=== PATIENT | male | born 1930 | race Caucasian/White ===

== ENCOUNTER 2018-02-06 10:48 | Inpatient (IN) | payer OTHER, MEDICAID ==
[~2018-02-06] VITALS: Ht 165.1 cm; Wt 69.9 kg
[2018-02-06 16:22] VITALS: BP_SYST 96
[2018-02-06] MEDS ORDERED: STA120 PO (16:57)
[2018-02-06] MEDS ORDERED: MELO15TA13 PO (16:57)
[2018-02-06] MEDS ORDERED: METF-509 PO (16:57)
[2018-02-06] MEDS ORDERED: RISP0.5T2 PO (16:57)
[2018-02-06] MEDS ORDERED: PRAM1TAB4 PO (16:57)
[2018-02-06] MEDS ORDERED: MEMA10SO PO (16:57)
[2018-02-06] MEDS ORDERED: VITD2000 PO (16:57)
[2018-02-06] MEDS ORDERED: BUSP5TAB3 PO (16:57)
[2018-02-06] MEDS ORDERED: SERT50TA12 PO (16:57)
[2018-02-06] MEDS ORDERED: GABA-529 PO (16:57)
[2018-02-06] MEDS ORDERED: LEVO100T9 PO (16:57)
[2018-02-06] MEDS ORDERED: NORT10CA PO (16:57)
[2018-02-06] MEDS ORDERED: IBUP-1480 PO (16:57)
[2018-02-06] MEDS ORDERED: ENAL10TA PO (16:57)
[2018-02-06] MEDS ORDERED: TAMS-11 PO (16:57)
[2018-02-06] MEDS ORDERED: ASA81 PO (16:57)
[2018-02-06] MEDS ORDERED: ROSU10TA PO (16:57)
[2018-02-06] MEDS ORDERED: MONT10TA22 (16:57)
[2018-02-06] MEDS ORDERED: FERR-57 PO (16:57)
[2018-02-06] MEDS ORDERED: MILK OF MAGNESIA 30 ML UDC PO PRN (18:30)
[2018-02-06] MEDS ORDERED: IBUPROFEN 800 MG TABLET PO SCH (18:30)
[2018-02-06] MEDS ORDERED: IBUPROFEN 800 MG TABLET PO PRN (20:24)
[2018-02-06 20:50] VITALS: BP_SYST 127
[2018-02-06] MEDS: 0.45% NACL 1,000 ML IV SCH (21:42)
[2018-02-06] MEDS: CHOLECALCIFEROL (VITAMIN D3) 2,000 UNIT TABLET PO SCH (21:43)
[2018-02-06] MEDS: SIMVASTATIN 40 MG TABLET PO SCH (21:43)
[2018-02-06] MEDS: ENOXAPARIN SODIUM 30 MG/0.3 ML SYRINGE SUBCUT SCH (21:43)
[2018-02-06] MEDS: FERROUS SULFATE 325 MG TABLET.DR PO SCH (21:43)
[2018-02-06] MEDS: MELOXICAM 7.5 MG TABLET PO SCH (21:43)
[2018-02-06] MEDS: NATEGLINIDE 120 MG TABLET PO SCH (21:43)
[2018-02-06] MEDS: GABAPENTIN 100 MG CAPSULE PO SCH (21:43)
[2018-02-06] MEDS: NORTRIPTYLINE HCL 10 MG CAPSULE PO SCH (21:43)
[2018-02-06] MEDS: PRAMIPEXOLE DI-HCL 1 MG TABLET PO SCH (21:44)
[2018-02-06] MEDS: busPIRone HCL 5 MG TABLET PO SCH (21:44)
[2018-02-06] MEDS: INSULIN REGULAR, HUMAN 100 UNITS/ML, 10 ML VIAL (novoLIN R) SUBCUT PRN (22:15)
[2018-02-07 00:47] VITALS: BP_SYST 114
[2018-02-07] MEDS: LEVOTHYROXINE SODIUM 0.1 MG TABLET PO SCH (06:26)
[2018-02-07] MEDS: INSULIN REGULAR, HUMAN 100 UNITS/ML, 10 ML VIAL (novoLIN R) SUBCUT PRN ×3 (06:29→17:20)
[2018-02-07 06:58] LABS: BASOPHILS # (AUTO) 0.1 K/uL (0.0-0.2); BASOPHILS % (AUTO) 0.8 % (0.0-2.0); EOSINOPHILS # (AUTO) 0.4 K/uL (0.0-0.4); EOSINOPHILS % (AUTO) 3.7 % (0.0-4.0); HEMATOCRIT 36.4 % (36-54); HEMOGLOBIN 12.4 g/dL (14.0-18.0); LYMPHOCYTES # (AUTO) 3.4 K/uL (1.0-5.5); LYMPHOCYTES % (AUTO) 35.6 % (20.5-51.5); MEAN CORPUSCULAR HEMOGLOBIN 32 pg (27-31); MEAN CORPUSCULAR HGB CONC 34 % (32-36); MEAN CORPUSCULAR VOLUME 94 fL (79.0-98.0); MONOCYTES # (AUTO) 0.9 K/uL (0.0-1.0); MONOCYTES % (AUTO) 9.8 % (1.7-9.3); NEUTROPHILS # (AUTO) 4.7 K/uL (1.8-7.7); NEUTROPHILS % (AUTO) 50.1 % (40.0-70.0); PLATELET COUNT (AUTO) 214 K/uL (130-430); RED BLOOD CELL COUNT(AUTO) 3.87 MIL/uL (4.2-6.2); RED CELL DISTRIBUTION WIDTH 12.1 % (9.0-15.0); WHITE BLOOD COUNT (AUTO) 9.5 K/uL (4.8-10.8)
[2018-02-07 07:12] LABS: ANION GAP 9 (5-15); CHLORIDE 102 mmol/L (98-107); CREATININE 1.27 mg/dL (0.55-1.30); GLUCOSE 173 mg/dL (70-99); SODIUM SERUM 137 mmol/L (136-145); UREA NITROGEN, BLOOD 29 mg/dL (8-21)
[2018-02-07 07:31] LABS: THYROID STIMULATING HORMONE 2.99 uIu/mL (0.36-3.74)
[2018-02-07] MEDS: MONTELUKAST 10 MG TABLET PO SCH (08:28)
[2018-02-07] MEDS: CHOLECALCIFEROL (VITAMIN D3) 2,000 UNIT TABLET PO SCH ×2 (08:28→20:17)
[2018-02-07] MEDS: SERTRALINE HCL 50 MG TABLET PO SCH (08:28)
[2018-02-07] MEDS: ASPIRIN 81 MG TAB.CHEW PO SCH (08:28)
[2018-02-07] MEDS: MELOXICAM 7.5 MG TABLET PO SCH ×2 (08:28→20:18)
[2018-02-07] MEDS: FERROUS SULFATE 325 MG TABLET.DR PO SCH ×2 (08:28→20:18)
[2018-02-07] MEDS: TAMSULOSIN HCL 0.4 MG CAP PO SCH (08:29)
[2018-02-07] MEDS: NATEGLINIDE 120 MG TABLET PO SCH ×3 (08:29→20:17)
[2018-02-07] MEDS: ENALAPRIL MALEATE 10 MG TABLET (VASOTEC) PO SCH (08:29)
[2018-02-07] MEDS: GABAPENTIN 100 MG CAPSULE PO SCH ×2 (08:29→20:18)
[2018-02-07] MEDS: 0.45% NACL 1,000 ML IV SCH ×2 (08:30→21:25)
[2018-02-07 08:50] VITALS: BP_SYST 121
[2018-02-07] MEDS ORDERED: MILK OF MAGNESIA 30 ML UDC PO PRN (09:45)
[2018-02-07] MEDS ORDERED: MEMANTINE HCL 5 MG TABLET PO ONE (09:45)
[2018-02-07] MEDS: busPIRone HCL 5 MG TABLET PO SCH ×2 (11:28→21:58)
[2018-02-07 12:00] VITALS: BP_SYST 129
[2018-02-07 16:55] VITALS: BP_SYST 134
[2018-02-07 20:00] VITALS: BP_SYST 136
[2018-02-07] MEDS: MEMANTINE HCL 5 MG TABLET PO SCH (20:17)
[2018-02-07] MEDS: NORTRIPTYLINE HCL 10 MG CAPSULE PO SCH (20:17)
[2018-02-07] MEDS: SIMVASTATIN 40 MG TABLET PO SCH (20:18)
[2018-02-07] MEDS: ENOXAPARIN SODIUM 30 MG/0.3 ML SYRINGE SUBCUT SCH (20:20)
[2018-02-07] MEDS: PRAMIPEXOLE DI-HCL 1 MG TABLET PO SCH (20:43)
[2018-02-08 00:48] VITALS: BP_SYST 122
[2018-02-08] MEDS: LEVOTHYROXINE SODIUM 0.1 MG TABLET PO SCH (06:22)
[2018-02-08] MEDS: INSULIN REGULAR, HUMAN 100 UNITS/ML, 10 ML VIAL (novoLIN R) SUBCUT PRN ×3 (06:28→16:54)
[2018-02-08 07:50] VITALS: BP_SYST 131
[2018-02-08] MEDS: 0.45% NACL 1,000 ML IV SCH ×2 (08:01→21:35)
[2018-02-08] MEDS: ASPIRIN 81 MG TAB.CHEW PO SCH (09:01)
[2018-02-08] MEDS: FERROUS SULFATE 325 MG TABLET.DR PO SCH ×2 (09:01→21:34)
[2018-02-08] MEDS: NATEGLINIDE 120 MG TABLET PO SCH ×3 (09:01→21:34)
[2018-02-08] MEDS: TAMSULOSIN HCL 0.4 MG CAP PO SCH (09:01)
[2018-02-08] MEDS: MONTELUKAST 10 MG TABLET PO SCH (09:01)
[2018-02-08] MEDS: MELOXICAM 7.5 MG TABLET PO SCH ×2 (09:02→21:34)
[2018-02-08] MEDS: CHOLECALCIFEROL (VITAMIN D3) 2,000 UNIT TABLET PO SCH ×2 (09:02→21:35)
[2018-02-08] MEDS: GABAPENTIN 100 MG CAPSULE PO SCH ×2 (09:02→21:35)
[2018-02-08] MEDS: MEMANTINE HCL 5 MG TABLET PO SCH ×2 (09:02→21:34)
[2018-02-08] MEDS: SERTRALINE HCL 50 MG TABLET PO SCH (09:02)
[2018-02-08] MEDS: ENALAPRIL MALEATE 10 MG TABLET (VASOTEC) PO SCH (09:03)
[2018-02-08] MEDS: busPIRone HCL 5 MG TABLET PO SCH ×2 (09:05→21:34)
[2018-02-08 12:00] VITALS: BP_SYST 132
[2018-02-08 15:57] VITALS: BP_SYST 120
[2018-02-08 19:10] VITALS: BP_SYST 145
[2018-02-08] MEDS: PRAMIPEXOLE DI-HCL 1 MG TABLET PO SCH (21:34)
[2018-02-08] MEDS: SIMVASTATIN 40 MG TABLET PO SCH (21:34)
[2018-02-08] MEDS: NORTRIPTYLINE HCL 10 MG CAPSULE PO SCH (21:34)
[2018-02-08] MEDS: ENOXAPARIN SODIUM 30 MG/0.3 ML SYRINGE SUBCUT SCH (21:35)
[2018-02-09 00:28] VITALS: BP_SYST 121
[2018-02-09] MEDS: LEVOTHYROXINE SODIUM 0.1 MG TABLET PO SCH (06:15)
[2018-02-09] MEDS: INSULIN REGULAR, HUMAN 100 UNITS/ML, 10 ML VIAL (novoLIN R) SUBCUT PRN ×2 (06:21→10:54)
[2018-02-09] MEDS: SERTRALINE HCL 50 MG TABLET PO SCH (08:23)
[2018-02-09] MEDS: TAMSULOSIN HCL 0.4 MG CAP PO SCH (08:23)
[2018-02-09] MEDS: MEMANTINE HCL 5 MG TABLET PO SCH (08:23)
[2018-02-09] MEDS: MONTELUKAST 10 MG TABLET PO SCH (08:23)
[2018-02-09] MEDS: ENALAPRIL MALEATE 10 MG TABLET (VASOTEC) PO SCH (08:23)
[2018-02-09] MEDS: GABAPENTIN 100 MG CAPSULE PO SCH (08:23)
[2018-02-09] MEDS: ASPIRIN 81 MG TAB.CHEW PO SCH (08:23)
[2018-02-09] MEDS: NATEGLINIDE 120 MG TABLET PO SCH (08:23)
[2018-02-09] MEDS: CHOLECALCIFEROL (VITAMIN D3) 2,000 UNIT TABLET PO SCH (08:23)
[2018-02-09] MEDS: MELOXICAM 7.5 MG TABLET PO SCH (08:23)
[2018-02-09] MEDS: FERROUS SULFATE 325 MG TABLET.DR PO SCH (08:24)
[2018-02-09 08:40] VITALS: BP_SYST 117
[2018-02-09 10:41] VITALS: BP_SYST 134
[2018-02-09] MEDS: busPIRone HCL 5 MG TABLET PO SCH (10:50)
[2018-02-09 11:00] VITALS: BP_SYST 125
== END 2018-02-09 11:46 | DRG 69 ==
LOC: SMU 15:00 → STU 16:43 → SMU 02-07 16:33
PROVIDERS: ADMIT Family Medicine; ATTEND Family Medicine
DX: G45.9 Transient cerebral ischemic attack, unspecified (principal); E11.9 Type 2 diabetes mellitus without complications; E03.9 Hypothyroidism, unspecified; I10 Essential (primary) hypertension; R29.6 Repeated falls; M19.90 Unspecified osteoarthritis, unspecified site; Z88.0 Allergy status to penicillin
CPT/HCPCS: 36415; 70450-TC; 80048; 82962; 84439; 84443-TC; 85025; 93880; 97110-GP; J1650; J1815